=== PATIENT | male | born 2005 | race African-American/Black ===

== ENCOUNTER 2024-01-10 03:51 | Emergency (ER) | payer OTHER, SELFPAY ==
[2024-01-10 03:59] VITALS: BP 127/77; PULSE 60; RESP 15; TEMP 36.5; O2SAT 98
--- NOTE | 2024-01-10 04:04 | PC.NURSE ---
Pt arrived to this ED with an 18 g IV in the left AC which was placed by an EMS that took him to [facility]. Pt states the wait time was going on 5 hours so he left and came here. This RN removed the IV upon pt arrival. IV site WNL.
[2024-01-10] MEDS: TETANUS,DIPHTHERIA,AC PERTUSSIS ADULT (0.5 ML) BOOSTRIX IM (07:11)
--- NOTE | 2024-01-10 07:21 | ED.GENADULT ---
HPI - General Adult General Chief complaint: Wound/Laceration Stated complaint: R arm lac Time Seen by Provider: 01/10/24 06:53 History of Present Illness HPI narrative: 18-year-old male presents to the emergency department for evaluation for laceration to his right wrist. Patient states he was caring glasses at work when he accidentally cut his wrist. Patient states this is not had template self-harm. Patient states his tetanus status is unknown. Related Data Allergies Allergy/AdvReac Type Severity Reaction Status Date / Time No Known Allergies Allergy Mild Verified 01/02/08 00:50 Review of Systems Review of Systems: All systems reviewed & are unremarkable except as noted in HPI and below Exam Narrative: APPEARANCE: Well appearing, no pain, no distress, well-nourished. HEAD: normocephalic, atraumatic. EYES: PERRLA/EOMI, conjunctivae clear. NOSE: Normal no drainage EARS:TMS clear with good light reflex. THROAT: Pharynx clear, no exudate. NECK: Supple. No adenopathy, no masses. RESPIRATORY: Airway patent, respirations nonlabored. Clear to auscultation bilaterally, no rales, rhonchi, wheezing. CARDIOVASCULAR: Regular rate and rhythm without murmurs rubs or gallops. ABDOMINAL: Soft, nontender, nondistended, normal bowel sounds MUSCULOSKELETAL: Moves all extremities. Strength/ROM intact, No edema, No calf tenderness. NEURO: Alert. Cranial nerves II through XII intact. Good gait. Good coordination SKIN: Laceration to right wrist Course Course Emergency Course: Laceration was repaired and patient was discharged to home Vital Signs Vital signs: Vital Signs Temperature 97.7 F 01/10/24 03:59 Pulse Rate 60 01/10/24 03:59 Respiratory Rate 15 01/10/24 03:59 Blood Pressure 127/77 01/10/24 03:59 Pulse Oximetry 98 01/10/24 03:59 Oxygen Delivery Room Air 01/10/24 03:59 Temperature 97.7 F 01/10/24 03:59 Pulse Rate 71 01/10/24 08:14 Respiratory Rate 20 01/10/24 08:14 Blood Pressure 121/70 01/10/24 08:14 Pulse Oximetry 99 01/10/24 08:14 Oxygen Delivery Room Air 01/10/24 03:59 Procedures Laceration Laceration 1: Time: 08:08 Site: upper extremity Side (If applicable): right Size (cm): 3 Description: linear Depth: simple, single layer Local Anesthetic: lidocaine 1% and with epi Amount of anesthesia used (mL): 4 Pre-repair: wound explored, irrigated and irrigated extensively ====== Skin Level ====== Skin layer closed with: nylon Size (cm): 4-0 Number of sutures: 4 Technique: simple, interrupted ====== Subcutaneous Layer ====== ====== Muscle Layer ====== ====== Tendon Layer ====== Medical Decision Making MDM Narrative Medical decision making narrative: 18-year-old male present to the ED for evaluation for laceration to his right forearm. Laceration was repaired as described in the procedure note. Patient's tetanus was updated. Patient was updated on the plan for wound care the importance of close follow-up. Differential Diagnosis Differential Diagnosis: Accidental laceration, self-inflicted laceration, venous injury, arterial injury Vital Signs Vital Signs: Vital Signs Temperature 97.7 F 01/10/24 03:59 Pulse Rate 60 01/10/24 03:59 Respiratory Rate 15 01/10/24 03:59 Blood Pressure 127/77 01/10/24 03:59 Pulse Oximetry 98 01/10/24 03:59 Oxygen Delivery Room Air 01/10/24 03:59 Temperature 97.7 F 01/10/24 03:59 Pulse Rate 71 01/10/24 08:14 Respiratory Rate 20 01/10/24 08:14 Blood Pressure 121/70 01/10/24 08:14 Pulse Oximetry 99 01/10/24 08:14 Oxygen Delivery Room Air 01/10/24 03:59 Discharge Plan Discharge Clinical Impression: Laceration Patient Disposition: Home, Self-Care Condition: Stable Instructions: Antibiotic Form, Laceration (ED) Additional Instructions: Wound care as directed. Mccarthy
[2024-01-10] MEDS: LIDO 1%/EPINEPHRINE 1:100,000 20 ML VIAL 10 ML INFILTRATE (08:13)
[2024-01-10 08:14] VITALS: BP 121/70; PULSE 71; RESP 20; O2SAT 99
== END 2024-01-10 08:15 | disposition home or self-care (01) ==
PROVIDERS: Emergency Provider Emergency Medicine
DX: S61.511A Laceration without foreign body of right wrist, initial encounter (principal); Z23 Encounter for immunization; W45.8XXA Other foreign body or object entering through skin, initial encounter
CPT/HCPCS: 12002; 90471; 90715; 99282